=== PATIENT | male | born 1980 | race Caucasian/White ===

== ENCOUNTER → 2022-06-22 | Outpatient (CLI) | payer BC ==
--- NOTE | 2022-06-22 17:04 | P.SLEEP ---
History of Present Illness H&P Date: 06/22/22 This is a 41-year-old male patient was coming in to the sleep center stating that his sleep quality is poor. The patient states that he is not getting restful sleep. He is unable to establish more than 2-3 hours of sleep. His problem started age of 25 and his condition has progressively gotten worse and is currently affecting his functionality. 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 He is struggling sometimes to stay awake although is able to still work and be productive at work. Upon further questioning, he has been told to snore. No witnessed apneas. He has been told also to be feeling restless at nighttime. At times, he gets back pain and this occurs mainly at nighttime and he doesn't have any back pain during the day. He goes to bed around 10 PM, gets out of bed at around 4:45 AM in the morning. He watches TV and reads the newspaper and ultimately goes to work. On medications, he sleeps better. He drinks 4 cups of coffee in the morning, no coffee after 3 PM. He drinks about 3-6 beers on a weekly basis. No substance abuse. No head trauma. No meningitis. No stroke. Does not take any naps during the day. Doesn't take any form of stimulants. Does not exercise on a regular basis. His weight has remained stable in the order of 200 pounds over the years. No anxiety. No depression. Denies having any social or financial stresses. He lives with his and children. No other major comorbidities. No chest pain or shortness of breath or heartburn or palpitations that occurred at nighttime. No psychiatric history. The patient has taken melatonin in the past without any improvement. He has also taken NyQuil and he has seen some response with intake of NyQuil. Review of Systems Full review of system was done and the positive findings are most above history of present illness Physical Exam Vitals: BP is 129/80 with a pulse of 70 and a respiration of 16 and a temperature of 98.1. Pulse ox is 98%. A port score is at 7. Weight is 197. Body mass index is 27.4 The patient appeared well nourished and normally developed. Vital signs as documented. Head exam is unremarkable. No scleral icterus or corneal arcus noted. Neck is without jugular venous distension, thyromegaly, or carotid bruits. Carotid upstrokes are brisk bilaterally. Lungs are clear to auscultation and percussion. Cardiac exam reveals the PMI to be normally sized and situated. Rhythm is regular. First and second heart sounds normal. No murmurs, rubs or gallops. Abdominal exam reveals normal bowel sounds, no masses, no organomegaly and no aortic enlargement. Extremities are nonedematous and both femoral and pedal pulses are normal.Examination of the skin revealed no evidence of significant rashes, suspicious appearing nevi or other concerning lesions.Neurologically, the patient is awake and alert and the patient does not have any focal neurological deficit. Cranial nerves are essentially intact. Assessment and Plan Plan: Insomnia, chronic, of unknown cause. No major comorbid conditions underlying this patient's chronic insomnia. He has issues with sleep maintenance since the age of 24 and his condition has progressively gotten worse over the years. No psychiatric history. No anxiety. No depression. No other major comorbid conditions as stated. Possibility of sleep apnea is felt to be less likely. Consider also the possibility of sleep misperception. Plan Discussed the patient principals of sleep hygiene Discussed with the patient principals of stimulus control and sleep restriction We'll going to therefore polysomnography We'll review the results of the polysomnography and make further recommendations. Sleep Note - Sleep Note Sleep Note: Temperature: Pulse Rate: Respiratory Rate: Blood Pressure: SpO2: Height: Weight: BMI: Neck Circumference:
== END ==
LOC: SLEEP 14:28
PROVIDERS: ATTEND Internal Medicine Critical Care Medicine
DX: G47.00 Insomnia, unspecified (principal); Z99.89 Dependence on other enabling machines and devices; G89.29 Other chronic pain
CPT/HCPCS: 99211